=== PATIENT | male | born 1990 | race Two or more races ===

== ENCOUNTER 2016-12-27 13:20 | Emergency (ER) | payer OTHER ==
[2016-12-27 13:26] VITALS: BP 130/77; PULSE 59; TEMP 98.3; BMI 27.4
--- NOTE | 2016-12-27 14:33 | PDOC ---
Suture Removal/Wound Check HPI - History of Present Illness Chief Complaint: Suture/Staple Removal (other) Stated Complaint: SUTURE/STAPLE REMOVAL Time Seen by Provider: 12/27/16 14:07 History Source: Yes: Patient Exam Limitations: Yes: No Limitations Treated at: [facility] ED - Previous ED Treatment Type of procedure performed on last visit: Yes: Laceration Repair Tetanus Immunization: Yes: Up to Date Antibiotics Prescribed: No - Onset of Previous Treatment Comment:: 12/27/16 14:31 States had plastic surgery performed by a physician and Oliver 2 months ago for earring hole closure. Was unable to return to that physician's office for suture removal and is requesting removal now. Denies pain, swelling, problems with that Past History - Travel Traveled outside of the country in the last 30 days: Yes Close contact w/someone who was outside of country & ill: Yes - Past Medical History Allergies/Adverse Reactions: Allergies Allergy/AdvReac Type Severity Reaction Status Date / Time No Known Allergies Allergy Verified 12/27/16 13:24 Home Medications: Ambulatory Orders No Home Medications 0 dose .ROUTE UTDICT 12/06/12 Other medical history: none - Suicide/Smoking/Psychosocial Hx Smoking Status: Yes Smoking History: Never smoked Number of Cigarettes Smoked Daily: 1 Information on smoking cessation initiated: No Hx Alcohol Use: No Drug/Substance Use Hx: No Substance Use Type: None Suture Removal/Wound Check PE - Physical Exam Laceration/Wound Check Symptoms: reports: None Current Severity Level: None Maximum Severity Level: None Pain Localization: None *Review of Systems - Review of Systems Able to Perform ROS?: Yes Constitutional: Yes: See HPI. No: Symptoms Reported, Fever HEENTM: No: Symptoms Reported Integumentary: Yes: Symptoms Reported, See HPI. No: Bruising Neurological: No: Symptoms reported Medical Decision Making - Medical Decision Making 12/27/16 14:32 Running sutures removed from plastic surgery. Of urine: Closure bilateral earlobes. Approximated well, no evidence of infection or problems. *DC/Admit/Observation/Transfer Diagnosis at time of Disposition: Removal of suture - Discharge Dispostion Disposition: HOME Condition at time of disposition: Stable Admit: No - Patient Instructions Printed Discharge Instructions: DI for Suture Removal
== END 2016-12-27 14:32 | disposition home or self-care (01) ==
LOC: JERFT 13:20
DX: Z48.02 Encounter for removal of sutures (principal)
CPT/HCPCS: 99281-25

== ENCOUNTER 2017-07-10 09:44 | Emergency (ER) | payer OTHER ==
[2017-07-10 10:01] VITALS: BMI 28.2
[2017-07-10] MEDS ORDERED: SODIUM CHLORIDE 1,000 ML IV ONE (10:15)
[2017-07-10] MEDS ORDERED: ONDANSETRON 4 MG/2 ML VIAL IVPUSH ONE (10:24)
[2017-07-10] MEDS ORDERED: FAMOTIDINE 20 MG/50 ML IVPB 20 MG/50 ML MG IVPB ONE ×2 (10:24→10:30)
[2017-07-10] MEDS ORDERED: ONDANSETRON 4 MG/2 ML VIAL ONE (10:29)
[2017-07-10 10:30] LABS: BASO % 0.2 % (0-2.0); HEMATOCRIT 45.7 % (35.4-49); HEMOGLOBIN 15.7 GM/dL (11.7-16.9); LYMPH % 3.2 % (8-40); MCH 30.2 pg (25.7-33.7); MCHC 34.3 g/dl (32.0-35.9); MEAN CELL VOLUME 88.1 fl (80-96); MEAN PLT VOLUME 7.4 fl (7.5-11.1); MONO % 3.3 % (3.8-10.2); NEUT % 93.3 % (42.8-82.8); PLATELET COUNT 330 K/MM3 (134-434); RBC 5.19 M/mm3 (4.00-5.60); RDW 12.4 % (11.9-15.9); WHITE BLOOD COUNT 14.4 K/mm3 (4.0-10.0)
--- NOTE | 2017-07-10 10:46 | PDOC ---
History of Present Illness - General Chief Complaint: Nausea/Vomiting Stated Complaint: ABD PAIN Time Seen by Provider: 07/10/17 09:58 - History of Present Illness Initial Comments: 07/10/17 10:47 26-year-old male with no significant past medical history presents emergency Department with burning epigastric pain associated with nausea and 10 episodes of nonbloody nonbilious emesis. He denies diarrhea, states he had a normal bowel movement this morning. Denies fevers or chills. He last ate a steak last night. He's never had similar symptoms in the past. Denies marijuana use. Denies any urinary symptoms of dysuria, frequency, urgency. Denies chest pain or shortness of breath. Denies recent travel. Has not tried any treatments for his symptoms. Past History - Past Medical History Allergies/Adverse Reactions: Allergies Allergy/AdvReac Type Severity Reaction Status Date / Time No Known Allergies Allergy Verified 07/10/17 09:56 Home Medications: Ambulatory Orders No Home Medications 0 dose .ROUTE UTDICT 12/06/12 COPD: No - Suicide/Smoking/Psychosocial Hx Smoking Status: Yes Smoking History: Current some day smoker Number of Cigarettes Smoked Daily: 1 Information on smoking cessation initiated: No Hx Alcohol Use: No Drug/Substance Use Hx: No Substance Use Type: None Review of Systems - Review of Systems Comments:: 07/10/17 10:48 GENERAL/CONSTITUTIONAL: No fever or chills. No weakness. HEAD, EYES, EARS, NOSE AND THROAT: No change in vision. No ear pain or discharge. No sore throat. GASTROINTESTINAL: +nausea, vomiting, no diarrhea or constipation. +abd pain GENITOURINARY: No dysuria, frequency, or change in urination. CARDIOVASCULAR: No chest pain or shortness of breath. RESPIRATORY: No cough, wheezing, or hemoptysis. MUSCULOSKELETAL: No joint or muscle swelling or pain. No neck or back pain. SKIN: No rash NEUROLOGIC: No headache, vertigo, loss of consciousness, or change in strength/ sensation. ENDOCRINE: No increased thirst. No abnormal weight change. HEMATOLOGIC/LYMPHATIC: No anemia, easy bleeding, or history of blood clots. ALLERGIC/IMMUNOLOGIC: No hives or skin allergy. *Physical Exam - Vital Signs Last Vital Signs Temp Pulse Resp BP Pulse Ox 97.9 F 100 H 20 128/56 99 07/10/17 09:54 07/10/17 09:54 07/10/17 09:54 07/10/17 09:54 07/10/17 09:54 - Physical Exam Comments: 07/10/17 10:48 GENERAL: Awake, alert, and fully oriented, in no acute distress HEAD: No signs of trauma EYES: PERRLA, EOMI, sclera anicteric, conjunctiva clear ENT: Auricles normal inspection, hearing grossly normal, nares patent, oropharynx clear without exudates. Moist mucosa NECK: Normal ROM, supple, no lymphadenopathy, JVD, or masses LUNGS: Breath sounds equal, clear to auscultation bilaterally. No wheezes, and no crackles HEART: Regular rate and rhythm, normal S1 and S2, no murmurs, rubs or gallops ABDOMEN: Soft, +epigastric ttp, neg murphys sign, normoactive bowel sounds. No guarding, no rebound. No masses EXTREMITIES: Normal range of motion, no edema. No clubbing or cyanosis. No cords, erythema, or tenderness NEUROLOGICAL: Normal speech, cranial nerves intact, negative pronator drift, 5/ 5 strength in all 4 extremities, normal sensation to light touch in all 4 extremities, normal cerebellar exam, normal gait, normal reflexes and tone SKIN: Warm, Dry, normal turgor, no rashes or lesions noted. Bedside POCUS with mildly distended GB with normal wall size, no stones, and no pericholecystic fluid on 2 views. ED Treatment Course - LABORATORY CBC & Chemistry Diagram: 07/10/17 10:20 07/10/17 10:20 - ADDITIONAL ORDERS Additional order review: 07/10/17 10:20 RBC 5.19 MCV 88.1 MCHC 34.3 RDW 12.4 MPV 7.4 L Neutrophils % 93.3 H Lymphocytes % 3.2 L Monocytes % 3.3 L Eosinophils % 0.0 Basophils % 0.2 - Medications Given in the ED: ED Medications Discontinued Medications Generic Name Dose Route Start Last Admin Trade Name Freq PRN Reason Stop Dose Admin Ondansetron HCl 4 mg 07/10/17 10:24 07/10/17 10:33 Zofran Injection IVPUSH 07/10/17 10:25 4 mg ONCE ONE Administration Medical Decision Making - Medical Decision Making 07/10/17 10:57 26-year-old male presents the emergency department with nausea vomiting and epigastric pain. Exam with mild epigastric tenderness to palpation. No Molina sign, bedside ultrasound with no evidence of gallbladder wall thickening, stones or pericholecystic fluid. Differential includes but not limited to gastroenteritis versus pancreatitis versus gastritis versus cholecystitis. 07/10/17 13:52 Leukocytosis to 14 Otherwise labs wnl Pt feels better with IVF, tylenol, pepcid, PPI tolerating PO Pain resolved, rpt abd exam benign Will DC with zofran, PMD f/u, pt given return precautions I discussed the physical exam findings, ancillary test results and final diagnoses with the patient. I answered all of the patient's questions. The patient was satisfied with the care received and felt comfortable with the discharge plan and treatment plan. The patient will call their primary care physician within 24 hours to arrange follow-up and will return to the Emergency Department with any new, persistent or worsening symptoms. *DC/Admit/Observation/Transfer Diagnosis at time of Disposition: Vomiting - Discharge Dispostion Disposition: HOME Condition at time of disposition: Stable Admit: No - Referrals - Patient Instructions Printed Discharge Instructions: DI for Vomiting -- Adult, DI for Nausea -- Adult Additional Instructions: Follow-up with your primary care doctor within 1-2 days. Take Zofran as needed for nausea. Drink plenty of fluids and try to stay as hydrated as possible. Return to the emergency department if you have any new, worsening or concerning symptoms. - Post Discharge Activity - Attestations Physician Attestion: 07/10/17 13:55 I, Dr. Aneudy Milligan MD, attest that this document has been prepared under my direction and personally reviewed by me in its entirety. I further attest, that it accurately reflects all work, treatment, procedures and medical decision -making performed by me.
[2017-07-10 11:07] LABS: ALBUMIN 4.5 g/dl (3.4-5.0); ALK PHOS 82 U/L (45-117); ANION GAP 11 (8-16); BILIRUBIN,TOTAL 1.1 mg/dL (0.2-1.0); BLOOD UREA NITROGEN 18 mg/dL (7-18); CALCIUM 9.6 mg/dL (8.5-10.1); CHLORIDE 104 mmol/L (98-107); CO2 26 mmol/L (21-32); GLUCOSE,RANDOM 123 mg/dL (74-106); LIPASE 99 U/L (73-393); SGOT/AST 22 U/L (15-37); SGPT/ALT 22 U/L (12-78); SODIUM 141 mmol/L (136-145); TOT PROT 8.1 g/dl (6.4-8.2)
[2017-07-10] MEDS ORDERED: ACETAMINOPHEN 1000 MG/100 ML VIAL (NON FORMULARY) IVPB ONE (11:23)
[2017-07-10] MEDS ORDERED: PANTOPRAZOLE SODIUM 40 MG VIAL IVPUSH ONE (11:23)
[2017-07-10] MEDS ORDERED: ACETAMINOPHEN INJECTION 100 ML IVPB ONE (11:55)
[2017-07-10] MEDS ORDERED: PANTOPRAZOLE SODIUM 40 MG VIAL ONE (11:56)
[2017-07-10 13:40] VITALS: BP 125/78; PULSE 88; TEMP 97.4
== END 2017-07-10 14:09 | disposition home or self-care (01) ==
LOC: JER 09:44
PROC: 3E033GC Introduction of Other Therapeutic Substance into Peripheral Vein, Percutaneous Approach (ICD-10-PCS; principal; 2017-07-10)
PROC: 3E033NZ Introduction of Analgesics, Hypnotics, Sedatives into Peripheral Vein, Percutaneous Approach (ICD-10-PCS; 2017-07-10)
PROC: 3E033GC Introduction of Other Therapeutic Substance into Peripheral Vein, Percutaneous Approach (ICD-10-PCS; 2017-07-10)
PROC: 3E033GC Introduction of Other Therapeutic Substance into Peripheral Vein, Percutaneous Approach (ICD-10-PCS; 2017-07-10)
DX: R11.2 Nausea with vomiting, unspecified (principal); F17.210 Nicotine dependence, cigarettes, uncomplicated
CPT/HCPCS: 36415; 80053; 83690; 85025; 96365; 96375; 99283-25; J0131; J7030